=== PATIENT | female | born 1945 | race Caucasian/White ===

== ENCOUNTER 2020-04-16 17:56 | Emergency (ER) | payer MEDICARE, OTHER, SELFPAY ==
[2020-04-16 20:17] VITALS: BP 169/78; PULSE 90; RESP 18; TEMP 37.4; O2SAT 97
--- NOTE | 2020-04-16 20:19 | ED.URI ---
HPI - URI/Sore Throat General Chief Complaint: Upper Respiratory Infection Stated Complaint: Cough Time Seen by Provider: 04/16/20 20:19 Source: patient Mode of arrival: ambulatory Limitations: no limitations History of Present Illness HPI Narrative: Navid Coleman is a 74 yo male with a PMH of high cholesterol, who comes to [facility] care with low-grade temperature x1 day and sneezing and runny nose x2 to 3 days. Related Data Home Medications Medication Instructions Recorded Confirmed simvastatin [Zocor] 40 mg PO DAILY 04/16/20 04/16/20 Allergies Allergy/AdvReac Type Severity Reaction Status Date / Time No Known Allergies Allergy Verified 04/16/20 20:15 Review of Systems Review of Systems: Narrative: CONSTITUTIONAL: Denies fever, chills, sweats. EYES: Denies visual changes, redness, discharge. ENT: has rhinorrhea, congestion, sore throat, otalgia. CARDIOVASCULAR: Denies chest pain, palpitations, edema. RESPIRATORY: Denies dyspnea, wheezing, cough GASTROINTESTINAL: Denies abdominal pain, nausea, vomiting, diarrhea. GENITOURINARY: Denies dysuria, hematuria, abnormal discharge SKIN: Denies rash or itching. NEUROLOGIC: Denies numbness, or focal weakness. PSYCHIATRIC: Denies anxiety or depression. PMFSH Past Medical History Medical History High cholesterol Family History Family History Other Heart disease Social History Social History (Updated 04/16/20 @ 20:24 by Larissa Valdez CNP) Smoking status: Former smoker Alcohol intake: former Gender identity (if verbalized by the patient): Male Comments At time of signature, I agree with nursing past medical, surgical, social and family history. There is no relevant family history pertinent to the presenting complaint. Exam Narrative: Exam Narrative: GENERAL: This is a well-nourished, well-developed patient, in mild distress. HEAD: normocephalic, atraumatic. EYES: Sclera clear/white. Vision is grossly intact. EARS: External ears normal, auditory canals erythema and without drainage, TMs normal without perforation. Hearing grossly intact. NOSE: External nose normal without nasal discharge, nares without redness, no rhinorrhea. THROAT: Mucous membranes moist, posterior pharynx erythema NECK: Neck supple, non-tender CARDIOVASCULAR: Regular rate and rhythm without murmurs, gallops, or rubs. RESPIRATORY: Clear to auscultation. Breath sounds equal bilaterally. No wheezes, rales, or rhonchi. GASTROINTESTINAL: Abdomen soft, non-tender, SKIN: warm, intact with no suspicious lesions or rash, good texture and turgor. Somewhat diaphoretic, has nail fungus on both hands nails are disintegrated NEURO: awake, alert, and oriented to person, place and time. There were no obvious focal neurologic abnormalities. Steady gait EXTREMITIES: Normal range of motion. BACK: Nontender without deformity Course Course Emergency Course: Patient came to express care for mild upper respiratory symptoms including low-grade fever x1 day and to 3 days of runny nose and congestion Vital Signs Vital signs: Vital Signs Temperature 99.4 F 04/16/20 20:17 Pulse Rate 90 04/16/20 20:17 Respiratory Rate 18 04/16/20 20:17 Blood Pressure 169/78 H 04/16/20 20:17 Pulse Oximetry 97 04/16/20 20:17 Temperature 99.4 F 04/16/20 20:17 Pulse Rate 90 04/16/20 20:17 Respiratory Rate 18 04/16/20 20:17 Blood Pressure 169/78 H 04/16/20 20:17 Pulse Oximetry 97 04/16/20 20:17 MDM - URI/Sore Throat Differential Diagnosis Differential diagnosis: Likely upper respiratory infection, viral infection and other Discharge Plan Discharge Clinical Impression: Upper respiratory infection Qualifiers: URI type: unspecified viral URI Qualified Code(s): J06.9 - Acute upper respiratory infection, unspecified Patient Disposition: Home, Self-Care Condition: Sta
== END 2020-04-16 20:29 | disposition home or self-care (01) ==
PROVIDERS: Emergency Provider Nurse Practitioner
DX: J06.9 Acute upper respiratory infection, unspecified (principal); E78.00 Pure hypercholesterolemia, unspecified; Z87.891 Personal history of nicotine dependence
CPT/HCPCS: 99203; G0463

== ENCOUNTER 2021-10-09 21:01 | Emergency (ER) | payer MEDICARE, OTHER, SELFPAY ==
[2021-10-09 21:36] VITALS: BP 164/89; PULSE 76; RESP 18; TEMP 36.7; O2SAT 98
[2021-10-09 22:10] LABS: D Dimer 0.81 ug/mL (<0.48)
--- NOTE | 2021-10-09 23:38 | ED.LOWEXIN ---
HPI - Extremity Injury (Lower) General Chief Complaint: Extremity Injury, Lower Stated Complaint: RLE pain Time Seen by Provider: 10/09/21 21:50 History of Present Illness HPI Narrative: 76-year-old male presents emergency room for evaluation of right leg pain. Patient states he was out mowing the lawn yesterday he was sick, woke up this morning with pain to the lateral side of his right lower extremity. Patient stated the pain was worse when he tried to ambulate. Denied injury or trauma. Denies history of DVTs, but he did not check denies shortness of breath or chest pain. States pain resolved prior to arrival. Related Data Home Medications Medication Instructions Recorded Confirmed simvastatin [Zocor] 40 mg PO DAILY 04/16/20 04/16/20 Allergies Allergy/AdvReac Type Severity Reaction Status Date / Time No Known Allergies Allergy Verified 10/09/21 21:40 Review of Systems Review of Systems: CONSTITUTIONAL: Denies fever, chills, or sweats. EYES: Denies visual changes, redness, or discharge. ENT: Denies rhinorrhea, congestion, sore throat, or otalgia. CARDIOVASCULAR: Denies chest pain, palpitations, or edema. RESPIRATORY: Denies cough or dyspnea. GASTROINTESTINAL: Denies abdominal pain, nausea, vomiting, or diarrhea. GENITOURINARY: Denies dysuria or hematuria. SKIN: Denies rash or itching. MUSCULOSKELETAL: Denies back pain, joint pain, or myalgia. NEUROLOGIC: Denies headache, numbness, dizziness, or weakness. PSYCHIATRIC: Denies anxiety or depression. PMFSH Past Medical History Medical History High cholesterol Family History Family History Other Heart disease Social History Social History Smoking status: Former smoker Alcohol intake: former Gender identity (if verbalized by the patient): Male Exam Narrative: GENERAL: Well-appearing, well-nourished, and in no acute distress. HEAD: Normocephalic, atraumatic. EYES: PERRLA and EOMI. CHEST: Clear to auscultation. No respiratory distress. No wheezes rales or rhonchi HEART: Regular rate and rhythm. No murmur heard. Normal peripheral pulses. ABDOMEN: Soft, nontender, nondistended, normal active bowel sounds. EXTREMITIES: Normal range of motion. No edema. RLE: Tenderness along the tibialis anterior muscle extending into the calf. Negative Homans' sign. No ecchymosis or cyanosis noted. Calf measurements are equal bilaterally. Distal pulses are present. SKIN: Warm, dry, no rash. NEURO: No focal deficits. Alert and oriented x3. PSYCH: Normal mood and affect. Course Vital Signs Vital signs: Vital Signs Temperature 36.7 C 10/09/21 21:36 Pulse Rate 76 10/09/21 21:36 Respiratory Rate 18 10/09/21 21:36 Blood Pressure 164/89 H 10/09/21 21:36 Pulse Oximetry 98 10/09/21 21:36 Temperature 36.7 C 10/09/21 21:36 Pulse Rate 76 10/09/21 21:36 Respiratory Rate 18 10/09/21 21:36 Blood Pressure 164/89 H 10/09/21 21:36 Pulse Oximetry 98 10/09/21 21:36 MDM - Extremity Injury (Lower) Lab Data Labs: Lab Results 10/09/21 Range/Units 21:45 D-Dimer 0.81 H (<0.48) ug/mL Discharge Plan Discharge Clinical Impression: Acute pain of right lower extremity Patient Disposition: Home, Self-Care Condition: Stable Instructions: Antibiotic Form Prescriptions: New Eliquis 5 mg tablet 5 mg PO BID Qty: 14 RF: 0 No Action simvastatin [Zocor] 40 mg Tablet 40 mg PO DAILY RF: 0 fluticasone propionate [Flonase Allergy Relief] 50 mcg/actuation spray,suspension 1 spray intranasal BID Qty: 9.9 RF: 0 cetirizine [Zyrtec] 10 mg tablet 5 mg PO DAILY Qty: 30 RF: 0 acetaminophen [Tylenol] 325 mg capsule 325 mg PO Q4-6H Qty: 60 RF: 0 Adult Robitussin Peak Cold M-S 5-10-100 mg/5 mL liquid 10 ml PO Q4H PRN (Reason: cold sy
[2021-10-09] MEDS: APIXABAN 5 MG TABLET 10 MG PO (23:50)
== END 2021-10-10 01:29 | disposition home or self-care (01) ==
LOC: ANHED 23:41
PROVIDERS: Emergency Provider Nurse Practitioner Family
DX: M79.604 Pain in right leg (principal); E78.00 Pure hypercholesterolemia, unspecified; Z87.891 Personal history of nicotine dependence
CPT/HCPCS: 36415; 85380; 99283; A9270

== ENCOUNTER 2021-10-10 07:36 | Outpatient (CLI) | payer MEDICARE, OTHER, SELFPAY ==
--- NOTE | ~2021-10-10 | US_ITS ---
EXAMINATION: US venous doppler LE RT DATE: 10/10/2021 08:59 INDICATION: Right lower limb pain. TECHNIQUE: Grayscale ultrasound images without and with compression and Doppler ultrasound images of the right lower extremity veins were obtained. COMPARISON: None. FINDINGS: The visualized portions of right common femoral vein, profunda (deep) femoral vein, femoral vein, pop liteal vein, peroneal veins, posterior tibial veins, and greater saphenous vein outflow are patent. IMPRESSION: 1. No deep venous thrombosis. Reviewed, dictated and finalized at location A.
== END 2021-10-10 07:37 | disposition home or self-care (01) ==
PROVIDERS: Visit Provider Nurse Practitioner Family
DX: M79.661 Pain in right lower leg (principal)
CPT/HCPCS: 93971

== ENCOUNTER 2021-11-14 13:23 | Emergency (ER) | payer MEDICARE, OTHER, SELFPAY ==
[2021-11-14 13:37] VITALS: BP 152/83; PULSE 85; RESP 16; TEMP 37.5; O2SAT 97
--- NOTE | 2021-11-14 13:49 | ED.URI ---
HPI - URI/Sore Throat General Chief Complaint: Upper Respiratory Infection Stated Complaint: Cough,Sore Throat Time Seen by Provider: 11/14/21 13:54 Source: patient and RN notes reviewed Mode of arrival: ambulatory Limitations: no limitations History of Present Illness HPI Narrative: 76-year-old male presents with concern for cough, chest congestion, sore throat. Reports 5-6 day history of symptoms. He reports he had a negative COVID test yesterday. Reports he has been taking [id number] medications without relief. He denies shortness of breath, bodies, chills, fever, sweats. MD elicited complaint: cough and sore throat Related Data Home Medications Medication Instructions Recorded Confirmed simvastatin 40 mg tablet (Zocor) 40 mg PO DAILY 04/16/20 04/16/20 Daily Multivitamin 11/14/21 aspirin 11/14/21 sildenafil (pulm.hypertension) 20 tablet 11/14/21 mg tablet Allergies Allergy/AdvReac Type Severity Reaction Status Date / Time No Known Allergies Allergy Verified 10/09/21 21:40 Review of Systems Review of Systems: CONSTITUTIONAL: Denies malaise, chills, sweats, or fever. EYES: Denies visual changes, redness, or discharge. ENT: Reports rhinorrhea, congestion, sore throat. Denies sinus pain, otalgia CARDIOVASCULAR: Denies chest pain, palpitations, or edema. RESPIRATORY: Reports cough. Denies dyspnea. GASTROINTESTINAL: Denies abdominal pain, nausea, vomiting, diarrhea SKIN: Denies rash or itching. MUSCULOSKELETAL: Denies myalgia. NEUROLOGIC: Denies headache. All systems reviewed & are unremarkable except as noted in HPI and below PMFSH Past Medical History Medical History High cholesterol Family History Family History Other Heart disease Social History Social History Smoking status: Former smoker Alcohol intake: former Gender identity (if verbalized by the patient): Male Comments At time of signature, agree with nursing past medical, surgical, social and family history. There is no relevant family history pertinent to the presenting complaint Exam Narrative: GENERAL: Well-appearing, well-nourished, and in no acute distress. HEAD: Normocephalic EYES: PERRLA, conjunctivae clear ENT: Nares clear, clear discharge. Mucous membranes moist. TM pearly coffman with dull light reflex bilaterally; no tragal tenderness. Oropharynx not erythematous without lesions. Tonsils not enlarged and without exudate, no drooling, no hoarseness, no trismus, uvula midline. NECK: Supple. No lymphadenopathy CHEST: Clear to auscultation, breath sounds equal. No wheezing, rhonchi, rales, or stridor. No respiratory distress, speaks in full sentences. HEART: Regular rate and rhythm. No murmur heard. SKIN: Warm, dry, no rash. NEURO: Alert and oriented x3. PSYCH: Normal mood and affect Course Course Emergency Course: Patient is aware of diagnosis, understands and agrees to treatment plan. Anticipatory guidance given. Patient agrees to follow-up as directed and is aware of reasons to seek care at the emergency department. Portions of this record may have been created with voice recognition software Level of Care: Express Care Visit Vital Signs Vital signs: Vital Signs Temperature 99.5 F 11/14/21 13:37 Pulse Rate 85 11/14/21 13:37 Respiratory Rate 16 11/14/21 13:37 Blood Pressure 152/83 H 11/14/21 13:37 Pulse Oximetry 97 11/14/21 13:37 Oxygen Delivery Room Air 11/14/21 13:37 Temperature 99.5 F 11/14/21 13:37 Pulse Rate 85 11/14/21 13:37 Respiratory Rate 16 11/14/21 13:37 Blood Pressure 152/83 H 11/14/21 13:37 Pulse Oximetry 97 11/14/21 13:37 Oxygen Delivery Room Air 11/14/21 13:37 Reviewed. MDM - URI/Sore Throat MDM Narrative Medical decision making narrative: Differential diagnosis considered:
== END 2021-11-14 14:04 | disposition home or self-care (01) ==
PROVIDERS: Emergency Provider Nurse Practitioner
DX: J40 Bronchitis, not specified as acute or chronic (principal); E78.00 Pure hypercholesterolemia, unspecified; Z87.891 Personal history of nicotine dependence
CPT/HCPCS: 99213; G0463

== ENCOUNTER 2022-08-08 17:18 | Emergency (ER) | payer MEDICARE, OTHER, SELFPAY ==
--- NOTE | ~2022-08-08 | XR_ITS ---
EXAM: XR hip LT min 3V w AP pelvis DATE: 08/08/2022 20:20 HISTORY: hip pain, NKI . COMPARISON: None available. FINDINGS: Normal mineralization. Bilateral uncomplicated appearing hip replacements. No fracture or dislocation. No lytic or blastic lesion. Degenerative change in the lumbar spine. Pelvic and hip enth esopathy. No erosion or suspicious periosteal change. Pelvic phleboliths. IMPRESSION: No acute osseous finding in the pelvis. No radiographic evidence of hardware-related comp lication. Reviewed, dictated and finalized at location K. [employer] IMPRESSION: No acute osseous finding in the pelvis. No radiographic evidence of hardware-related complication.
[2022-08-08 17:30] VITALS: BP 174/90; PULSE 84; RESP 16; TEMP 36.7; O2SAT 96
--- NOTE | 2022-08-08 20:03 | ED.LOWEXIN ---
HPI - Extremity Injury (Lower) General Chief Complaint: Extremity Injury, Lower Stated Complaint: L GROIN/HIP PAIN Time Seen by Provider: 08/08/22 19:52 History of Present Illness HPI Narrative: Patient is 77-year-old male here for evaluation of atraumatic left hip pain over the past week. Patient states the pain is worse at nighttime and is described as a sharp shooting pain. Present mostly around his left hip and left anterior thigh. Has been taking Tylenol but has not noticed an improvement. He does have a history of a hip replacement on the left and contacted his orthopedist for follow-up but did not have an appointment until the end of the week. Reports he has had intermittent issues with a similar type of pain over the past 2 years but this time is more severe. He denies any paresthesias, fevers or chills, nausea or vomiting, systemic symptoms. Able to walk without issues. Related Data Home Medications Medication Instructions Recorded Confirmed simvastatin 40 mg tablet (Zocor) 40 mg PO DAILY 04/16/20 04/16/20 Daily Multivitamin 11/14/21 aspirin 11/14/21 sildenafil (pulm.hypertension) 20 tablet 11/14/21 mg tablet Allergies Allergy/AdvReac Type Severity Reaction Status Date / Time No Known Allergies Allergy Verified 08/08/22 19:54 Review of Systems Review of Systems: Gen.: Denies fevers or chills Eyes: Denies eye pain or visual change ENT: Denies congestion Respiratory: Denies shortness of breath or cough CV: Denies chest pain or palpitations GI: Denies abdominal pain nausea, emesis or diarrhea denies burning, urgency, frequency or hematuria Musculoskeletal: Reports left hip pain Neuro: Denies numbness, tingling, weakness or focal weakness Skin: Denies rash Except as documented, all other systems reviewed and negative [facility] Past Medical History Medical History High cholesterol Family History Family History Other Heart disease Social History Social History Smoking status: Former smoker Alcohol intake: former Gender identity (if verbalized by the patient): Male Exam Narrative: APPEARANCE: Well appearing, no pain in distress, well-nourished. Head: Normocephalic and atraumatic. EYES: PERRLA/EOMI, conjunctivae clear NOSE: No nasal drainage EARS: External ear normal in appearance THROAT: Oropharynx is clear. Mucous membranes are moist. NECK: Supple. No adenopathy, no masses. RESPIRATORY: Airway patent, respirations nonlabored. Clear to auscultation bilaterally, no rales, rhonchi, wheezing. CARDIOVASCULAR: Strong DP and PT pulses bilaterally. Regular rate and rhythm without murmurs, rubs, or gallops. ABDOMINAL: Normoactive bowel sounds. Soft, nontender, nondistended. No rebound tenderness or guarding. MUSCULOSKELETAL: Compartments are soft throughout the lower extremity. Full range of motion in bilateral hips, knees and feet without any pain. No tenderness to palpation along the calf or quadriceps muscles. No edema. NEURO: Normal speech. No focal neurologic deficits. SKIN: Skin is warm and dry. No rashes. PSYCHIATRIC: Normal affect/mood. Course Vital Signs Vital signs: Vital Signs Temperature 98.0 F 08/08/22 17:30 Pulse Rate 84 08/08/22 17:30 Respiratory Rate 16 08/08/22 17:30 Blood Pressure 174/90 H 08/08/22 17:30 Pulse Oximetry 96 08/08/22 17:30 Oxygen Delivery Room Air 08/08/22 17:30 Temperature 97.8 F 08/08/22 20:46 Pulse Rate 78 08/08/22 22:00 Respiratory Rate 14 08/08/22 22:00 Blood Pressure 162/97 H 08/08/22 22:00 Pulse Oximetry 96 08/08/22 22:00 Oxygen Delivery Room Air 08/08/22 17:30 MDM - Extremity Injury (Lower) MDM Narrative Medical decision making narrative: 77-year-old male with a history of chronic hip pain secondary to arthritis status p
[2022-08-08] MEDS: MELOXICAM 7.5 MG TABLET PO (20:43)
--- NOTE | 2022-08-08 20:44 | PC.NURSE ---
pt. family member called stating pt. has been having cp, and increased weakness. pt. family member states I am worried about his heart. PT. denies all accounts of chest pain, increased weakness, fatigue or shortness of breath. pt. educated that it is important to communicate these concerns w/ medical staff. pt. states he is fine and is going to see his pcp.
[2022-08-08 20:46] VITALS: BP 172/95; PULSE 80; RESP 14; TEMP 36.6; O2SAT 95
[2022-08-08 22:00] VITALS: BP 162/97; PULSE 78; RESP 14; O2SAT 96
== END 2022-08-08 22:00 | disposition home or self-care (01) ==
PROVIDERS: Emergency Provider Physician Assistant
DX: M25.552 Pain in left hip (principal); E78.00 Pure hypercholesterolemia, unspecified; Z96.641 Presence of right artificial hip joint; Z87.891 Personal history of nicotine dependence
CPT/HCPCS: 73502; 99283; A9270

== ENCOUNTER 2025-06-13 14:17 | Emergency (ER) | payer MEDICARE, OTHER, SELFPAY ==
--- NOTE | 2025-06-13 14:26 | ED.URI ---
HPI - URI/Sore Throat General Chief Complaint: Upper Respiratory Infection Stated Complaint: flu symptoms Time Seen by Provider: 06/13/25 14:19 Source: patient Mode of arrival: ambulatory Limitations: no limitations History of Present Illness HPI Narrative: Navid is a 79-year-old male patient presenting to the clinic today with complaints of scratchy throat, runny nose, low-grade fever, and cough x3 days. He denies any chest pain or shortness of breath. Been taking Mucinex DM and Tylenol for his symptoms. Related Data Home Medications ?Medication ?Instructions ?Recorded ?Confirmed ?Last Taken ?Type Daily Multivitamin 11/14/21 Unknown History aspirin 11/14/21 Unknown History sildenafil (pulm.hypertension) 20 tablet 11/14/21 Unknown History mg tablet simvastatin 20 mg tablet mg 06/13/25 Unknown History Allergies Allergy/AdvReac Type Severity Reaction Status Date / Time No Known Allergies Allergy Verified 06/13/25 15:07 Review of Systems Review of Systems: Pertinent positives per HPI. Patient denies any rash, headache, visual changes, dizziness, shortness of breath, chest pain, palpitations, nausea, vomiting, diarrhea, constipation, abdominal pain, or any urinary issues. [facility] Past Medical History Medical History High cholesterol Family History Family History Other Heart disease Social History Social History Smoking status: Former smoker Alcohol intake: former Gender identity (if verbalized by the patient): Male Comments At the time of my signature, I reviewed and agree with the nursing past medical, surgical, social, and family history. There is no relevant family history pertinent to the patient complaint. Exam Narrative: General: Well-developed, obese, in no apparent distress Head: Normocephalic, atraumatic Eyes: Pupils equally round and reactive to light bilaterally, EOM intact, sclera and conjunctive clear, no discharge, lids normal Ears: TMs intact and clear, ear canals clear, no drainage, grossly hearing normal. Nose: Nares patent, clear nasal discharge, no inflammation, no sinus tenderness. Mouth: Oral pharynx without lesions or masses, good dentition, MMM. Postnasal drip Neck: Supple, trachea midline, no enlargement of anterior or posterior cervical nodes, no thyroid masses or goiter palpable. Cardio: Regular rate and rhythm, s1 and s2 normal, no murmur appreciated. Resp: Clear to auscultation bilaterally, no rhonchi, rales, wheezing or rubs Course Course Level of Care: Express Care Visit Vital Signs Vital signs: Vital Signs Temperature 36.6 C 06/13/25 14:50 Pulse Rate 74 06/13/25 14:50 Respiratory Rate 16 06/13/25 14:50 Blood Pressure 164/76 H 06/13/25 14:50 Pulse Oximetry 96 06/13/25 14:50 Oxygen Delivery Room Air 06/13/25 14:50 Temperature 36.6 C 06/13/25 14:50 Pulse Rate 74 06/13/25 14:50 Respiratory Rate 16 06/13/25 14:50 Blood Pressure 164/76 H 06/13/25 14:50 Pulse Oximetry 96 06/13/25 14:50 Oxygen Delivery Room Air 06/13/25 14:50 MDM MDM Narrative Medical decision making narrative: At the time of visit patient is resting comfortably on the exam table. Patient appears to be nontoxic. Complaints of scratchy throat, runny nose, low-grade fever, and cough x3 days. He denies any chest pain or shortness of breath. Been taking Mucinex DM and Tylenol for his symptoms. On exam patient has bilateral TMs intact and clear, clear nasal drainage, no anterior turbinate inflammation, oral pharynx mildly red with postnasal drip, no cervical lymphadenopathy, heart rates regular rate rhythm, lung sounds are clear. COVID and influenza testing were performed. Labs: COVID and influenza testing was negative in the clinic today. Plan: I suspect patient has URI. Supportive measures were discussed with the patient and they voiced understanding discharge instructions and agrees to treatment plan. Return precautions reviewed Differential Diagnosis Differential Diagnosis: Differential diagnostic considerations for upper respiratory infection include upper respiratory infection, croup, otitis media, sinusitis, viral infection, bronchitis, influenza, pharyngitis, strep, uvulitis. Lab Data Labs: Lab Results 06/13/25 Range/Units 14:53 POC Influenza A Ag Negative (Negative) POC Influenza B Ag Negative (Negative) POC SARS CoV-2 Ag Negative (Negative) Discharge Plan Discharge Clinical Impression: Viral infection Upper respiratory infection Qualifiers: URI type: unspecified URI Qualified Code(s): J06.9 - Acute upper respiratory infection, unspecified Pharyngitis Qualifiers: Pharyngitis/tonsillitis etiology: unspecified etiology Qualified Code(s): J02.9 - Acute pharyngitis, unspecified Patient Disposition: Home Condition: Stable Instructions: Antibiotic Form, Pharyngitis (ED), Viral Syndrome (ED), Cold Symptoms (ED) Additional Instructions: COVID and influenza testing was negative in the clinic today. May take DayQuil/NyQuil for cold/flu symptoms Cool-mist humidifier at the bedside. Increase fluids and stay well hydrated May take Tylenol or motrin as directed on bottle for pain/fever May use Flonase 1 spray in each nare daily May take OTC antihistamines such as Zyrtec or Claritin daily as directed on bottle May apply Vicks vapor rub to chest to open sinuses Sinus rinses for congestion Cepacol spray, cough drops, throat lozenges, warm tea with honey/lemon, gargle salt water to soothe throat BRAT diet for diarrhea Clear liquids x 24 hours then advance as tolerated for nausea/vomiting Go to the ED if you develop a worsening in your condition- high fever not controlled by Tylenol or Motrin, dehydration, weakness, lethargy, shortness of breath, or chest pain. Follow up with your PCP in 3-5 days if symptoms persist. Patient Language: Lithuanian Prescriptions: No Action cetirizine [Zyrtec] 10 mg tablet 5 mg PO DAILY Qty: 30 0RF sildenafil (pulm.hypertension) 20 mg tablet Daily Multivitamin aspirin simvastatin 20 mg tablet meloxicam 7.5 mg tablet 7.5 mg PO DAILY Qty: 10 0RF Follow-up/Referrals: Sami,Malcom [Other] Time of Disposition: 15:17 Quality NIHSS Nursing Documentation ED NIHSS nursing documentation: reviewed/agree
[2025-06-13 14:50] VITALS: BP 164/76; PULSE 74; RESP 16; TEMP 36.6; O2SAT 96
[2025-06-13 15:13] LABS: EDCOVIDSCREEN Negative (Negative); EDINFLUASCREEN Negative (Negative); EDINFLUBSCREEN Negative (Negative)
== END 2025-06-13 15:20 | disposition home or self-care (01) ==
PROVIDERS: Emergency Provider Nurse Practitioner Family
DX: J06.9 Acute upper respiratory infection, unspecified (principal); J02.9 Acute pharyngitis, unspecified
CPT/HCPCS: 87426; 87804; 99212; G0463